=== PATIENT | male | born 1970 | race Hispanic/Latino ===

== ENCOUNTER 2021-04-10 19:22 | Emergency (ER) | payer OTHER ==
[~2021-04-10] VITALS: Ht 172.7 cm; Wt 85.7 kg
[2021-04-10 19:43] VITALS: BP 136/72
[2021-04-10 20:38] VITALS: BP 117/69
== END 2021-04-10 20:46 | disposition left against medical advice (07) ==
LOC: EDH 19:22
DX: S00.81XA Abrasion of other part of head, initial encounter (principal); S60.811A Abrasion of right wrist, initial encounter; F10.10 Alcohol abuse, uncomplicated; X58.XXXA Exposure to other specified factors, initial encounter; Y93.89 Activity, other specified; Y92.89 Other specified places as the place of occurrence of the external cause; Y99.8 Other external cause status